=== PATIENT | male | born 1995 ===

== ENCOUNTER 2017-05-18 18:01 | Emergency (ER) | payer MEDICAID ==
[2017-05-18 18:15] VITALS: BMI 21.6
[2017-05-18 18:16] VITALS: TEMP 98.3
--- NOTE | 2017-05-18 19:35 | C.PDOC ---
History Of Present Illness 21 y/o male presents to the ED with complaints of left heel pain. Pt states he was playing basketball 2 hours ago when he jumped and landed on the heel. Pain is worse with movement and ambulation. Denies change in sensation or any other injury or complaint. Time Seen by Provider: 05/18/17 18:29 Chief Complaint (Nursing): Lower Extremity Problem/Injury History Per: Patient History/Exam Limitations: no limitations Onset/Duration Of Symptoms: Hrs Current Symptoms Are (Timing): Still Present Severity: Moderate Recent travel outside of the [place]: No - Ankle/Foot Description Of Injury: Struck Against Object Past Medical History Reviewed: Historical Data, Nursing Documentation, Vital Signs Vital Signs: Last Vital Signs Temp 98.3 F 05/18/17 18:15 Pulse 75 05/18/17 19:46 Resp 18 05/18/17 19:46 BP 119/69 05/18/17 19:46 Pulse Ox 100 05/18/17 20:56 Family History: States: Unknown Family Hx - Social History Hx Alcohol Use: No Hx Substance Use: No - Immunization History Hx Tetanus Toxoid Vaccination: No Hx Influenza Vaccination: No Hx Pneumococcal Vaccination: No Review Of Systems Musculoskeletal: Positive for: Other (left heel pain) Neurological: Negative for: Weakness, Numbness Physical Exam - Physical Exam Appears: Non-toxic, No Acute Distress Skin: Warm, Dry, No Rash Head: Atraumatic, Normacephalic Eye(s): bilateral: Normal Inspection, EOMI Nose: Normal Oral Mucosa: Moist Neck: Normal ROM, Supple Chest: Symmetrical Respiratory: No Accessory Muscle Use Extremity: Normal ROM, Tenderness (medial and plantar aspect left heel tenderness), Capillary Refill (<2 seconds), No Deformity, No Swelling Pulses: Left Dorsalis Pedis: Normal Neurological/Psych: Oriented x3, Normal Speech, Normal Motor, Normal Sensation ED Course And Treatment O2 Sat by Pulse Oximetry: 100 (room air) Pulse Ox Interpretation: Normal - Other Rad XR left foot X-Ray: Interpreted by Me, Viewed By Me Interpretation: No fracture or dislocation Progress Note: Plan: XR left foot. XR negative for fracture dislocation. ISH wrap and cast shoe applied by RN. Instructed RICE and to follow up with ortho in 2 days. Disposition - Disposition Disposition: HOME/ ROUTINE Disposition Time: 19:32 Condition: STABLE Additional Instructions: Rest, ice and elevate. Follow up with ortho in 1-2 days. 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 - Scribe Statement The provider has reviewed the documentation as recorded by the Scribe Tyson Ulloa All medical record entries made by the Glenibсветлана were at my direction and personally dictated by me. I have reviewed the chart and agree that the record accurately reflects my personal performance of the history, physical exam, medical decision making, and the department course for this patient. I have also personally directed, reviewed, and agree with the discharge instructions and disposition.
[2017-05-18 19:48] VITALS: BP 119/69; PULSE 75; RESP 18
[2017-05-18 20:50] VITALS: O2SAT 100
--- NOTE | 2017-05-19 09:16 | RAD ---
PROCEDURE: HISTORY: trauma COMPARISON: None TECHNIQUE: Three views FINDINGS: No fracture or dislocation. Bone mineralization unremarkable IMPRESSION: No fracture
== END 2017-05-18 20:00 | disposition home or self-care (01) ==
LOC: C.ER 18:01
DX: S90.32XA Contusion of left foot, initial encounter (principal); X58.XXXA Exposure to other specified factors, initial encounter; Y93.67 Activity, basketball

== ENCOUNTER 2018-03-30 14:15 | Emergency (ER) | payer MEDICAID ==
[2018-03-30 14:15] VITALS: BMI 21.6
--- NOTE | 2018-03-30 16:09 | C.PDOC ---
History Of Present Illness 22 year old male presents to the ED for evaluation of headache that started this morning. Patient reports he was play fighting yesterday night at 21:00 when he got flipped over and hit his head on the ground. Patient reports he woke up this morning with bumps on his left upper forehead, headache, nausea, intermittent lightheadedness as well. Patient states he has not taken any medications for her symptoms. Patient denies blurry vision, nausea, vomit, diarrhea, rash, photophobia, weakness, numbness. - HPI Time Seen by Provider: 03/30/18 15:44 Chief Complaint (Nursing): Trauma History Per: Patient History/Exam Limitations: no limitations Onset/Duration Of Symptoms: Days Injury Occurred (Timing): Days Ago: (yesterday at 21:00) Location Of Injury: Left: Head (forehead) Recent travel outside of the [place]: No Additional History Per: Patient - Fall Fall:Prior To Injury: Slipped Past Medical History Reviewed: Historical Data, Nursing Documentation, Vital Signs Vital Signs: Last Vital Signs Temp 98.9 F 03/30/18 16:43 Pulse 65 03/30/18 16:43 Resp 20 03/30/18 16:43 BP 109/68 03/30/18 16:43 Pulse Ox 95 03/30/18 16:43 - Medical History PMH: No Chronic Diseases Surgical History: No Surg Hx Family History: States: Unknown Family Hx - Social History Hx Alcohol Use: No Hx Substance Use: No - Immunization History Hx Tetanus Toxoid Vaccination: No Hx Influenza Vaccination: No Hx Pneumococcal Vaccination: No Review Of Systems Constitutional: Negative for: Fever, Chills Eyes: Negative for: Vision Change Gastrointestinal: Positive for: Nausea. Negative for: Vomiting Musculoskeletal: Negative for: Neck Pain Skin: Negative for: Rash Neurological: Positive for: Headache, Dizziness. Negative for: Weakness, Numbness Physical Exam - Physical Exam Appears: Non-toxic, No Acute Distress Skin: Normal Color, Warm, Dry Head: Atraumatic, Normacephalic, Other (small hematoma to left upper scalp) Eye(s): bilateral: Normal Inspection, PERRL, EOMI, Other (no raccon eyes ) Ear(s): Bilateral: Other (no hemotypanum) Neck: Normal ROM, No Midline Cervical Tenderness, Supple, Other (no hubbard signs ) Extremity: Normal ROM, No Tenderness, Capillary Refill (< 2 seconds), No Swelling Neurological/Psych: Oriented x3, Normal Speech, Normal Cognition, Normal Cranial Nerves, Normal Motor, Normal Sensation Gait: Steady ED Course And Treatment O2 Sat by Pulse Oximetry: 98 (ON RA) Pulse Ox Interpretation: Normal Medical Decision Making Medical Decision Making: Plan: * Motrin 600 mg PO Disposition Counseled Patient/Family Regarding: Diagnosis, Need For Followup, Rx Given - Disposition Referrals: Maria E Valencia MD [Medical Doctor] - Disposition: HOME/ ROUTINE Disposition Time: 16:28 Condition: GOOD Additional Instructions: Please apply cold compress to forehead several times a day to reduce swelling. Tylneol or Motrin for pain. Follow up with Dr Valencia in 1-2 days. Return toER for severe headache, seizure, vomiting, unusual behavior or any other concerns. 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 - Scribe Statement The provider has reviewed the documentation as recorded by the Scribe Delon Esparza All medical record entries made by the Scribe were at my direction and personally dictated by me. I have reviewed the chart and agree that the record accurately reflects my personal performance of the history, physical exam, medical decision making, and the department course for this patient. I have also personally directed, reviewed, and agree with the discharge instructions and disposition.
[2018-03-30 16:45] VITALS: BP 109/68; PULSE 65; RESP 20; TEMP 98.9
[2018-03-30 17:05] VITALS: O2SAT 98
== END 2018-03-30 16:45 | disposition home or self-care (01) ==
LOC: C.ER 14:15
DX: S06.0X0A Concussion without loss of consciousness, initial encounter (principal); S00.83XA Contusion of other part of head, initial encounter; W01.0XXA Fall on same level from slipping, tripping and stumbling without subsequent striking against object, initial encounter